=== PATIENT | female | born 1970 | race Caucasian/White ===

== ENCOUNTER → 2020-10-14 | Outpatient (CLI) | payer BC ==
--- NOTE | 2020-10-14 08:42 | MM ---
Reason for exam: screening (asymptomatic). Baseline mammogram. History: Patient is postmenopausal and has history of other cancer at age 13. Family history of breast cancer in daughter at age 18. Physical Findings: Nurse did not find any significant physical abnormalities on exam. MG 3D Screening Mammo W/Cad Bilateral CC and MLO view(s) were taken. There are scattered fibroglandular densities. Benign calcifications. These results were verbally communicated with the patient and result sheet given to the patient on 10/14/20. ASSESSMENT: Benign, BI-RAD 2 RECOMMENDATION: Routine screening mammogram of both breasts in 1 year.
== END | disposition home or self-care (01) ==
LOC: RADMAMWWP 07:03
PROVIDERS: ATTEND Family Medicine
DX: Z12.31 Encounter for screening mammogram for malignant neoplasm of breast (principal); Z78.0 Asymptomatic menopausal state
CPT/HCPCS: 77063; 77067

== ENCOUNTER 2021-01-29 11:57 | Emergency (ER) | payer BC ==
[2021-01-29 12:03] VITALS: BP 142/84; PULSE 88; RESP 18; TEMP 98
--- NOTE | 2021-01-29 13:02 | ED ---
Lower Extremity Injury HPI - General Chief Complaint: Extremity Injury, Lower Stated Complaint: DVT Lt Leg Time Seen by Provider: 01/29/21 12:17 Source: patient, family Mode of arrival: ambulatory Limitations: no limitations - History of Present Illness Initial Comments: Olivia is a 51-year-old female presents the ER today after she was notified by her primary care that there was a clot in her thigh on ultrasound yesterday. Patient reports she noted some painful swelling on her lateral asked week, the swelling is moved up to her thigh. She ultrasound yesterday and was told that there is a clot and she needed to be seen in the hospital. She denies any chest pain palpitation shortness of breath. Denies any fevers chills or illness. - Related Data Home Medications Medication Instructions Recorded Confirmed Acetaminophen/Diphenhydramine 2 tab PO QAM 01/29/21 01/29/21 [Tylenol PM 500-25mg] Cyclobenzaprine [Flexeril] 10 mg PO TID PRN 01/29/21 01/29/21 lisinopriL [Prinivil] 20 mg PO DAILY 01/29/21 01/29/21 Allergies Allergy/AdvReac Type Severity Reaction Status Date / Time No Known Allergies Allergy Verified 01/29/21 13:03 Review of Systems ROS Statement: Those systems with pertinent positive or pertinent negative responses have been documented in the HPI. ROS Other: All systems not noted in ROS Statement are negative. Past Medical History Additional Past Medical History / Comment(s): melanoma left leg History of Any Multi-Drug Resistant Organisms: None Reported Past Surgical History: Orthopedic Surgery Additional Past Surgical History / Comment(s): uterine ablation, bunion removed right foot Past Psychological History: No Psychological Hx Reported Smoking Status: Never smoker Past Alcohol Use History: None Reported Past Drug Use History: None Reported General Exam - General Exam Comments Initial Comments: Physical Exam GENERAL: Patient is well-developed and well-nourished. Patient is nontoxic and well- hydrated and is in no distress. HENT: Normocephalic, Atraumatic. EYES: PERRL, EOMI PULMONARY: Unlabored respirations. No audible rales rhonchi or wheezing was noted. CARDIOVASCULAR: There is a regular rate and rhythm without any murmurs gallops or rubs. Palpable superficial vessels in the calf and thigh consistent with a thrombophlebitis ABDOMEN: Soft and nontender with normal bowel sounds. SKIN: Is bruising over the left lateral calf and left anterior thigh : Deferred NEUROLOGIC: Patient is alert and oriented x3. Moving all extremities spontaneously MUSCULOSKELETAL: Normal extremities with adequate strength and full range of motion. No lower extremity swelling or edema. No calf tenderness. PSYCHIATRIC: Normal psychiatric evaluation. Limitations: no limitations Course Vital Signs 01/29/21 11:58 Temperature 98.0 F Pulse Rate 88 Respiratory 18 Rate Blood Pressure 142/84 O2 Sat by Pulse 99 Oximetry Medical Decision Making - Medical Decision Making Patient was seen and evaluated history is obtained from patient on physical exam the patient has obvious thrombosed varicosities on her left leg, an ultrasound was apparently performed yesterday and she was advised by her primary care to come to the ER today. Patient has no edema or signs of DVT, patient's primary care office was contacted fax over ultrasound results and the indeterminate ultrasound was ordered, ultrasound was performed and resulted with evidence of thrombosed varicosities, at that time the ultrasound from the office was also faxed over and confirmed thrombosed varicosities. There is no thrombosis in the deep system no thrombosis in the superficial system near the deep system system Esterase ultrasound was read by vascular surgeon Dr. Guzman, I did contact Dr. Guzman to ensure that she had no concerns about these findings. She advised that the patient needs only supportive care with NSAIDs and hot compresses. She can follow-up in her office for repeat ultrasound in the near future. I did refer the patient to Dr. Baum to discuss pain stripping in the future. All questions pertaining care were answered return parameters were discussed patient was advised that she does not fact need anticoagulation for the superficial clots, needed port of care, anti-inflammatories and warm compresses. Patient expressed understanding is agreeable to discharge home. Disposition Clinical Impression: Superficial thrombophlebitis Disposition: HOME SELF-CARE Condition: Stable Instructions (If sedation given, give patient instructions): Superficial Thrombophlebitis (ED) Is patient prescribed a controlled substance at d/c from ED?: No Referrals: Alpa Rosales PAC [Primary Care Provider] - 1-2 days Zeus Garnica MD [STAFF PHYSICIAN] - 1-2 days Juliana Guzman DO [STAFF PHYSICIAN] - 1-2 days
--- NOTE | 2021-01-29 14:05 | US ---
EXAMINATION TYPE: US venous doppler duplex LE LT DATE OF EXAM: 01/29/2021 1:46 PM COMPARISON: NONE CLINICAL HISTORY: 51-year-old female Patient had US at her doctor's office yesterday and was told she had a blood clot in her left leg. Discoloration and pain lateral outer left thigh. SIDE PERFORMED: Left TECHNIQUE: The lower extremity deep venous system is examined utilizing real time linear array sonog elham with graded compression, doppler sonography and color-flow sonography. FINDINGS: VESSELS IMAGED: Common Femoral Vein Deep Femoral Vein Greater Saphenous Vein * Femoral Vein Popliteal Vein Small Saphenous Vein * Proximal Calf Veins (* superficial vessels) Left Leg: Negative for DVT [employer] [facility] Director notes: At the patient's discoloration lateral left thigh, there is superficial venous thr ombosis visualized from the left calf to the left thigh. IMPRESSION: 1. No evidence for DVT within the left lower extremity imaged from the groin to the upper calf. 2. At the patient's site of discoloration and pain, there is superficial venous thrombosis extending from the calf up to the thigh.
== END 2021-01-29 15:01 | disposition home or self-care (01) ==
LOC: EC 11:57
DX: I80.02 Phlebitis and thrombophlebitis of superficial vessels of left lower extremity (principal)
CPT/HCPCS: 99283